=== PATIENT | male | born 1975 | race Caucasian/White ===

== ENCOUNTER 2020-06-26 14:52 | Emergency (ER) | payer OTHER, SELFPAY ==
[2020-06-26 15:10] VITALS: BP 150/76; PULSE 88; RESP 20; TEMP 36.7; O2SAT 98; BMI 35.4
--- NOTE | 2020-06-26 16:19 | ED.EXTPRO ---
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 He states that it occurred today while he was running. He states it was a bulge on the front/outside of his left leg over his dooley. He states it was painful to the touch. It has resolved since the event initially occurred. He has had a bulge in this area in the past but has never caused him any discomfort. No overlying skin changes. Related Data Allergies Allergy/AdvReac Type Severity Reaction Status Date / Time No Known Drug Allergies Allergy Verified 06/26/20 15:10 Review of Systems Constitutional Constitutional: Denies fever(s) Musculoskeletal Musculoskeletal: Denies tingling Comments: Left leg pain Integumentary/Breasts Skin/Breast: Denies lesions and Denies rash Neurologic Neurologic: Denies tingling Hematologic/Lymphatic Hematologic/Lymphatic: Denies easy bleeding and Denies easy bruising Patient History Medical History Patient denies medical problems (Acute) Social History Smoking Status: Never smoker Smoking Status: Never smoker Substance Use Type: does not use Exam Initial Vital Signs Initial Vital Signs: Vital Signs Temperature 98.1 F 06/26/20 15:10 Pulse Rate 88 06/26/20 15:10 Respiratory Rate 20 06/26/20 15:10 Blood Pressure 150/76 H 06/26/20 15:10 Pulse Oximetry 98 06/26/20 15:10 Const General: cooperative and comfortable Limitations: mental status not altered [facility] Head: normal to inspection and normocephalic Skin Lesions: no lesions Rashes: no rashes Neuro Gait: normal gait Sensory Exam: no sensory deficits noted Extrem Other: Patient had approximately 2 cm area along the mid tibia just lateral to midline where he states that the bulge was located. There was no bulge there currently. There was a potential deficit felt in the fascia but a not 100% commence this. Course Vital Signs Vital signs: Vital Signs - 8 hr 06/26/20 15:10 06/26/20 16:24 Temperature 98.1 F Pulse Rate 88 83 Respiratory Rate 20 16 Blood Pressure 150/76 H 116/58 L Pulse Oximetry 98 96 MDM - Extremity (Nontraumatic) MDM Narrative Medical decision making narrative: Patient is asymptomatic now he the issue that brought him to the emergency department has resolved. It was a small bulge on the left anterior lateral portion of the mid tibia. His took a picture of the area and in my opinion it does not look like a vessel. I have a higher suspicion that he potentially has a small deficit in the fashion involving the tibialis anterior him when he was running and the muscle was enlarged because of use it essentially herniated through this small deficit. This would account for the discomfort and also the fact that the area resolved once he quit running and the muscle became less engorged with blood. Informed patient he should talk with his primary doctor about getting referral to see Orthopedics. Informed him that if this occurs again and becomes painful he should stop what he is doing and allow the symptoms to resolve as it could potentially the to necrosis of the muscle. I do have low suspicion for compartment syndrome. Patient was given return precautions and follow-up instructions. He expressed understanding and agreement. Discharge Plan Departure Patient Disposition: Home Clinical Impression: Pain in left lower leg Discharge Date/Time: 06/26/20 16:24 Activity Restrictions/Additional Instructions: I do recommend that you follow-up with your medical department to discuss potential referral to see Orthopedics. You have no restrictions on your activity however like we discussed if the bulge happens again and it is painful I do recommend that you stop which were doing as this could potentially cause further issues. Return to the emergency department for any new or worsening symptoms
[2020-06-26 16:24] VITALS: BP 116/58; PULSE 83; RESP 16; O2SAT 96
== END 2020-06-26 16:24 | disposition home or self-care (01) ==
PROVIDERS: Emergency Provider Emergency Medicine
DX: M79.605 Pain in left leg (principal)
CPT/HCPCS: 99281